=== PATIENT | female | born 1985 | race Caucasian/White ===

== ENCOUNTER 2017-08-11 23:23 | Emergency (ER) | payer BC, OTHER ==
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
[2017-08-12 00:29] LABS: ACETAMINOPHEN 0 ug/mL (10-30)
[2017-08-12] MEDS ORDERED: Ibuprofen 600 MG Tab PO ONE (02:11)
== END 2017-08-12 03:53 ==
LOC: EEVIPCON 23:23 → JD.ED 23:23
DX: T14.91XA Suicide attempt, initial encounter (principal); F32.9 Major depressive disorder, single episode, unspecified; Z87.891 Personal history of nicotine dependence; Z79.899 Other long term (current) drug therapy; Z91.040 Latex allergy status; Z91.030 Bee allergy status
CPT/HCPCS: 36415; 80053; 80306; 81025; 84443; 85025; 93005; 99285; A9270; G0480; 99284